=== PATIENT | female | born 1995 | race Asian ===

== ENCOUNTER 2024-11-22 10:46 | Emergency (ER) | payer OTHER ==
[~2024-11-22] VITALS: Ht 165.1 cm; Wt 56.7 kg
[2024-11-22 11:11] VITALS: BP 141/89; TEMP 98.1
[2024-11-22 11:55] VITALS: O2SAT 99
== END 2024-11-22 11:55 | disposition home or self-care (01) ==
LOC: ER 10:46
DX: M54.10 Radiculopathy, site unspecified (principal); Z88.1 Allergy status to other antibiotic agents; Z91.040 Latex allergy status; Z91.018 Allergy to other foods